=== PATIENT | female | born 1990 | race Caucasian/White ===

== ENCOUNTER 2016-12-07 07:37 | Emergency (ER) | payer SELFPAY ==
[~2016-12-07 07:37] MED LIST: BACTRIM DS TABL1 TA2 PO; IBUPROFEN800 MG PO; MOTRIN600 M1; NAPROXEN PO; NORCO 5/325 TAB1 TAB PO; PRILOSEC PO; VIBRAMYCIN100 M1 PO; VOLTAREN50 MG PO; ZOVIRAX PO; ZYRTEC-D TABLE1 EACH
== END 2016-12-07 08:48 | disposition home or self-care (01) ==
LOC: CED 07:37
DX: L02.512 Cutaneous abscess of left hand (principal); Z88.1 Allergy status to other antibiotic agents; Z88.2 Allergy status to sulfonamides; Z88.8 Allergy status to other drugs, medicaments and biological substances
CPT/HCPCS: 10060; 36415; 87070; 87205; 96361; 96374; 99284; J1885; J2543